=== PATIENT | female | born 2000 | race Caucasian/White ===

== ENCOUNTER 2021-08-13 05:46 | Emergency (ER) | payer BC ==
[~2021-08-13] VITALS: Ht 157.5 cm; Wt 65.0 kg
[2021-08-13] MEDS ORDERED: SODIUM CHLORIDE FLUSH 10ML SYR IVF ONE (07:00)
[2021-08-13] MEDS ORDERED: HYDROmorphone 1 MG/ML, 1ML INJ IV ONE (07:00)
[2021-08-13] MEDS ORDERED: ONDANSETRON 2MG/ML, 2ML IVPush ONE (07:00)
--- NOTE | 2021-08-13 07:02 | NUR ---
PATIENT WALKED BACK FROM TRIAGE WITH CHIEF C/O GENERALIZED ABD PAIN X3 DAYS. PATIENT DENIES N/V/D, NO FEVERS OR PAIN WITH URINATION, DENIES VAGINAL DISCHARGE. PATIENT IS GUARDING ABD. 20 GAUGE IV STARTED LEFT AC AND BLOOD COLLECTED. PATIENT THEN AMBULATED TO BATHROOM WITH STEADY GAIT FOR URINE SAMPLE. URINE COLLECTED AND SENT TO LAB. PATIENT BACK IN [facility], CONNECTED TO MONITOR, VSS, CALL LIGHT WITHIN REACH.
[2021-08-13] MEDS ORDERED: ONDANSETRON 2MG/ML, 2ML ONE (07:12)
[2021-08-13] MEDS ORDERED: HYDROmorphone 2 MG/ML, 1ML ONE (07:12)
--- NOTE | 2021-08-13 07:18 | NUR ---
PATIENT TO IMAGING.
[2021-08-13 07:20] LABS: BASOPHILS % (AUTO) 1 % (0-1); EOSINOPHILS % (AUTO) 4 % (1-7); LYMPHOCYTES % (AUTO) 46 % (22-44); MEAN CORPUSCULAR HEMOGLOBIN 29.3 pg (27.0-34.8); MEAN CORPUSCULAR HGB CONC 33.6 g/dL (32.4-35.8); MEAN PLATELET VOLUME 8.3 fL (7.4-10.4); MONOCYTES % (AUTO) 7 % (2-9); NEUTROPHILS % (AUTO) 42 % (42-75); PLATELET COUNT 316 x10^3/uL (130-400); RED BLOOD COUNT 4.46 x10^6/uL (3.82-5.3); RED CELL DISTRIBUTION WIDTH 13.7 % (9.6-15.2)
[2021-08-13 07:33] LABS: ALANINE AMINOTRANSFERASE 25 U/L (12-78); ALBUMIN 3.7 g/dL (3.4-5.0); ANION GAP 5 mmol/L (5-15); CALCIUM 9.2 mg/dL (8.5-10.1); CHLORIDE 105 mmol/L (98-107); CREATININE 0.61 mg/dL (0.55-1.02)
[2021-08-13 07:37] LABS: ALKALINE PHOSPHATASE 67 U/L (45-117); BILIRUBIN,TOTAL 0.1 mg/dL (0.2-1.0); TOTAL PROTEIN 8.3 g/dL (6.4-8.2)
--- NOTE | 2021-08-13 07:48 | NUR ---
PATIENT BACK IN ROOM, MEDICATED PER eMAR, NADN, CONNECTED TO MONITOR, VSS, CALL LIGHT WITHIN REACH, NO FURTHER NEEDS AT THIS TIME.
[2021-08-13 08:02] LABS: MICROSCOPIC NOT IND
[2021-08-13] MEDS ORDERED: MAALOX/HYOSCYAMINE/LIDOCAINE 45 ML BTL ONE (08:46)
[2021-08-13 08:49] VITALS: BP 107/71
--- NOTE | 2021-08-13 08:56 | NUR ---
IV removed. Patient given discharge instructions and they have confirmed that they understand the instructions. Patient ambulatory with steady gait. NAD, all questions answered appropriately, denies additional needs at this time. No personal belongings left in room after discharge.
[2021-08-13] MEDS ORDERED: MAALOX/HYOSCYAMINE/LIDOCAINE 45 ML BTL PO ONE (09:00)
== END 2021-08-13 08:57 | disposition home or self-care (01) ==
LOC: ED 07:40
DX: K29.00 Acute gastritis without bleeding (principal); R10.13 Epigastric pain; R10.12 Left upper quadrant pain; R11.2 Nausea with vomiting, unspecified
CPT/HCPCS: 36415; 76700; 80053; 81003; 83690; 84703; 85025; 96374; 96375; 99284; J1170; J2405